=== PATIENT | male | born 1960 | race Caucasian/White ===

== ENCOUNTER → 2017-12-10 | Outpatient (CLI) | payer OTHER | END | disposition home or self-care (01) | LOC: CFH 09:00 | PROVIDERS: ATTEND Nurse Practitioner | DX: M51.37 Other intervertebral disc degeneration, lumbosacral region (principal); M51.16 Intervertebral disc disorders with radiculopathy, lumbar region; M25.78 Osteophyte, vertebrae; M51.27 Other intervertebral disc displacement, lumbosacral region | CPT/HCPCS: 72148 ==

== ENCOUNTER → 2018-04-27 | Outpatient (CLI) | payer OTHER | END | disposition home or self-care (01) | LOC: CFH 13:31 | PROVIDERS: ATTEND Psychiatry & Neurology Neurology | DX: M50.30 Other cervical disc degeneration, unspecified cervical region (principal); M54.12 Radiculopathy, cervical region | CPT/HCPCS: 70450; 72141 ==

== ENCOUNTER → 2021-02-06 | Outpatient (CLI) | payer OTHER | END | disposition home or self-care (01) | LOC: CVU 08:05 | PROVIDERS: ATTEND Nurse Practitioner | DX: R42 Dizziness and giddiness (principal) | CPT/HCPCS: 93306; 93356 ==